=== PATIENT | female | born 1985 | race African-American/Black ===

== ENCOUNTER 2023-09-16 17:07 | Outpatient (CLI) | payer OTHER, SELFPAY ==
--- NOTE | ~2023-09-16 | XR_ITS ---
EXAMINATION: XR lumbar spine 6V w bending DATE: 09/16/2023 17:37 INDICATION: Chronic bilateral low back pain without sciatica. TECHNIQUE: 7 views of lumbar spine including standing and flexion and extension views were obtained. COMPARISON: None. FINDINGS: There is 8 degrees levocurvature of thoracolumbar spine. There is no abnormal motion with f lexion or extension. Vertebral body heights and intervertebral disc heights are normal. Endplate oste ophytes are noted at multiple levels. There is multilevel facet joint osteoarthritis, severe bilatera lly at L4-L5 and L5-S1. IMPRESSION: 1. Mild lumbar spondylosis. Reviewed, dictated and finalized at location E. TRUCTION [employer] DIGGER IMPRESSION: 1. Mild lumbar spondylosis.
== END 2023-09-16 17:08 | disposition home or self-care (01) ==
LOC: ANHIMG 17:14
PROVIDERS: Visit Provider Internal Medicine
DX: M47.896 Other spondylosis, lumbar region (principal)
CPT/HCPCS: 72114